=== PATIENT | male | born 1955 | race Caucasian/White ===

== ENCOUNTER 2019-09-03 11:51 | Day surgery (SDC) | payer BC, OTHER ==
[~2019-09-03 11:51] MED LIST: LACTATED RINGERS 1,000 ML IV SCH; LIDOCAINE 1% 20 ML VIAL (10MG/ML) FOR IV START INTRADERMA PRN
[2019-09-03 12:21] VITALS: RESP 18; TEMP 97.1
[2019-09-03] MEDS ORDERED: LACTATED RINGERS 1,000 ML IV ONE (12:22)
[2019-09-03] MEDS ORDERED: LIDOCAINE 1% 20 ML VIAL (10MG/ML) FOR IV START INTRADERMA ONE (12:22)
[2019-09-03] MEDS ORDERED: PROPOFOL 10 MG/ML 20 ML VIAL IV ONE (12:51)
--- NOTE | 2019-09-03 13:26 | P.PCN ---
Date of Procedure: 09/03/19 Description of Procedure: BRIEF HISTORY: Patient is a 64-year-old pleasant male scheduled for an elective colonoscopy as a part of screening for malignant neoplasm colon. Denies any change in bowel habits, abdominal pain or blood per rectum. Last colonoscopy 12 years ago and normal per his recollection. PROCEDURE PERFORMED: Colonoscopy with polypectomy. PREOPERATIVE DIAGNOSIS: Screening for malignant neoplasm colon, last colonoscopy 12 years ago. ESTIMATED BLOOD LOSS: Minimal. IV sedation per Anesthesia. PROCEDURE: After informed consent was obtained, the patient, was brought into the endoscopy unit. IV sedation was administered by Anesthesia under continuous monitoring. Digital rectal examination was normal. Initially the Olympus CF-190 flexible video colonoscope was then inserted in the rectum, gradually advanced into the cecum without any difficulty. Careful examination was performed as the scope was gradually being withdrawn. Ileocecal valve and the appendiceal orifice were visualized and appeared normal. Prep was excellent. Mucosa of the cecum, asce nding colon, transverse colon, descending colon, sigmoid colon, and rectum appeared normal. Diminutive 1 mm cecal polyp removed with cold forcep polypectomy. Diminutive 2 mm sigmoid polyp removed with cold forcep polypectomy. Diminutive 1 mm rectal polyp removed with cold forcep polypectomy. Retroflexion was performed in the rectum and no lesions were seen, mild internal hemorrhoids noted. The patient tolerated the procedure well. IMPRESSION: 3 diminutive polyps removed with cold forcep polypectomy from the cecum, sigmoid colon and rectum. Normal-appearing colon from rectum to cecum. RECOMMENDATIONS: Findings of this examination were discussed with the patient and his girlfriend. Okay to resume diet. Okay to resume medications. Anticipate repeat colonoscopy in 5 years pending pathology from polypectomies.
[2019-09-03 13:38] VITALS: BP 120/72; PULSE 80
== END 2019-09-03 14:08 | disposition home or self-care (01) ==
LOC: ORWHC2ENDO 11:51
PROVIDERS: ATTEND Internal Medicine
DX: Z12.11 Encounter for screening for malignant neoplasm of colon (principal); D12.0 Benign neoplasm of cecum; D12.5 Benign neoplasm of sigmoid colon; K62.1 Rectal polyp; K64.8 Other hemorrhoids; I10 Essential (primary) hypertension; K21.9 Gastro-esophageal reflux disease without esophagitis; M10.9 Gout, unspecified; Z79.891 Long term (current) use of opiate analgesic; Z79.899 Other long term (current) drug therapy
CPT/HCPCS: 88305; 45380; J2704

== ENCOUNTER → 2019-12-23 | Outpatient (CLI) | payer OTHER ==
--- NOTE | 2019-12-23 19:49 | MR ---
EXAMINATION TYPE: MR femur/thigh LT wo/w con DATE OF EXAM: 12/23/2019 COMPARISON: HISTORY: Lt thigh pain/anterior, from mid thigh to knee CONTRAST: Standard multiplanar, multisequence MRI departmental protocol utilizing 8.5 mL intravenous Gadavist g adolinium contrast. Findings There is symmetric appearance of the muscle bundles of the left and right thigh. There is no evidence of soft tissue mass. There is no subcutaneous edema. There are small bilateral knee joint effusions. The left and right femur show normal signal pattern without evidence of bone edema. There is no evid ence of a fracture. There is no sign of periosteal reaction. The contrast images show no pathologic e nhancement. I see no muscle atrophy. Impression new graft negative MR scan of the left femur and thigh. Exam fails to show evidence of any bony or soft tissue abnormality. Small bilateral knee joint effusions of doubtful significance.
== END | disposition home or self-care (01) ==
LOC: RADMRIMAIN 17:41
PROVIDERS: ATTEND Physician Assistant
DX: R20.2 Paresthesia of skin (principal)
CPT/HCPCS: 73720; A9585

== ENCOUNTER → 2019-12-25 | Outpatient (CLI) | payer OTHER ==
--- NOTE | 2019-12-25 13:02 | MR ---
EXAMINATION TYPE: MR lumbar spine wo/w con DATE OF EXAM: 12/25/2019 COMPARISON: NONE HISTORY: 64-year-old male Low back pain 64-year-old male Technique: Multiplanar, multisequence images of the lumbar spine were obtained befor e and after administration of 7.5 mL intravenous Gadavist gadolinium contrast. 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 Very heterogeneous marrow signal throughout the bases of multilevel advanced degenerative disc diseas e with associated edematous Modic type I endplate change. Fatty matrix hemangioma within the L4 vertebral body. Endplate changes are greatest at L1-L2 anterior ly and then posteriorly at L2-L3. Some fatty Modic type II endplate changes present right laterally a t L4-L5. Vertebral body heights are preserved. Conus medullaris is normal. Hypertrophic facet arthropathy throughout. There is grade 1 retrolisthesis that L1-L2 and L2-L3. Bulging disks and ligamentum flavum thickening are present throughout. At T12-L1, bulging disc and facet arthropathy. Changes result in mild spinal canal stenosis without s ignificant neural foraminal stenosis. At L1-L2, diffuse disc bulge with facet arthropathy. Changes result in impression onto the ventral th ecal sac without significant spinal canal stenosis. Mild bilateral neuroforaminal stenosis. At L2-L3, posterior disc bulge impressing on the ventral thecal sac without significant spinal canal stenosis. Facet arthropathy. There is also a left intraforaminal disc protrusion contributing to mode rate left neuroforaminal stenosis. Disc material closely approaches and may contact the exiting left L2 nerve root. At L3-L4, facet arthropathy and ligamentum flavum thickening, bulging disc, and grade 1 retrolisthesi s. Mild overall narrowing of the spinal canal with moderate bilateral neuroforaminal stenosis and abu tment of the exiting right L3 nerve root. At L4-L5, disc osteophyte complex with ligamentum flavum thickening and facet arthropathy. There is a butment of the traversing left L5 nerve root with moderate right and mild left neural foraminal steno sis. No significant spinal canal stenosis. At L5-S1, mild bulging disc with hypertrophic facet arthropathy on the right. Mild bilateral neurofor aminal stenosis. No prevertebral or paravertebral soft tissue abnormality seen. No abnormal enhancement within the spinal canal. IMPRESSION: 1. 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 2. Hypertrophic facet arthropathy and moderate to advanced degenerative disc disease throughout. Dege nerative grade 1 retrolisthesis at L1-L2 and L2-L3. 3. Levels of mixed Modic type I and type II endplate change. The edematous change is greatest anterio rly at L1-L2 and posteriorly at L2-L3. This seems to account for the marrow heterogeneity. 4. Changes result in mild spinal canal stenoses as T12-L-1 and L3-L4. Bulging discs impress onto the ventral thecal sac and additional levels without significant spinal canal stenosis. 5. Variable neuroforaminal stenoses as outlined above, moderate on the left at L2-L3 secondary to an intraforaminal disc herniation. 6. Moderate bilateral neural foraminal stenosis at L3-L4 with abutment of the exiting right L3 nerve root here. 7. At L4-L5, there is abutment of the traversing left L5 nerve root with a moderate right and mild le ft neuroforaminal stenosis.
== END | disposition home or self-care (01) ==
LOC: RADMRIMAIN 07:31
PROVIDERS: ATTEND Physician Assistant
DX: M48.061 Spinal stenosis, lumbar region without neurogenic claudication (principal); M51.26 Other intervertebral disc displacement, lumbar region; M51.86 Other intervertebral disc disorders, lumbar region; M43.16 Spondylolisthesis, lumbar region; M51.36 Other intervertebral disc degeneration, lumbar region; M46.96 Unspecified inflammatory spondylopathy, lumbar region
CPT/HCPCS: 72158; A9585